=== PATIENT | female | born 1975 | race Caucasian/White ===

== ENCOUNTER 2016-09-14 06:06 | Day surgery (SDC) | payer BC ==
[~2016-09-14] VITALS: Ht 177.8 cm; Wt 73.3 kg
[~2016-09-14 06:06] MED LIST: MULTI VITAMINS1 TAB PO
[2016-09-14 06:39] VITALS: BP 114/66; PULSE 75; TEMP 97.8
[2016-09-14] MEDS ORDERED: PROBIOTIC FORMU1 CAP PO (06:49)
[2016-09-14 07:33] VITALS: BP 101/70; PULSE 71; TEMP 97.9
[2016-09-14 07:45] VITALS: BP 100/65; PULSE 67
[2016-09-14 08:00] VITALS: BP 109/69; PULSE 63
[2016-09-14 13:28] VITALS: BP 104/62; PULSE 66
== END 2016-09-14 09:20 | disposition home or self-care (01) ==
LOC: SDCO 06:06
DX: K64.0 First degree hemorrhoids (principal); K59.00 Constipation, unspecified
CPT/HCPCS: OP; J2250; J2405; J3010; J7030

== ENCOUNTER → 2016-12-17 | Outpatient (CLI) | payer BC ==
[~2016-12-17] MED LIST changes: +PROBIOTIC FORMU1 CAP PO
== END ==
LOC: MC.RAD 13:40
DX: Z12.31 Encounter for screening mammogram for malignant neoplasm of breast (principal)

== ENCOUNTER → 2019-02-24 | Outpatient (CLI) | payer BC | LOC: MC.RAD 15:17 | DX: Z12.31 Encounter for screening mammogram for malignant neoplasm of breast (principal) ==

== ENCOUNTER → 2020-03-21 | Outpatient (CLI) | payer BC | LOC: MC.RAD 10:55 | DX: Z12.31 Encounter for screening mammogram for malignant neoplasm of breast (principal) ==

== ENCOUNTER → 2021-03-28 | Outpatient (CLI) | payer BC | LOC: MC.RAD 15:28 | DX: Z12.31 Encounter for screening mammogram for malignant neoplasm of breast (principal) ==

== ENCOUNTER → 2023-05-21 | Outpatient (CLI) | payer BC ==
[2004-09-23 03:39] VITALS: TEMP 97
== END ==
LOC: CANSCHCLI → MC.RAD 15:44
DX: Z12.31 Encounter for screening mammogram for malignant neoplasm of breast (principal)